=== PATIENT | female | born 1980 | race African-American/Black ===

== ENCOUNTER 2020-07-27 11:57 | Inpatient (IN) | payer SELFPAY ==
[2020-07-27] MEDS ORDERED: niCARdipine 25 MG in Sodium Chloride 0.9% 250 ML 240 ML IVPB SCH (14:00)
[2020-07-27 14:41] VITALS: BMI 27.8
[2020-07-27] MEDS ORDERED: hydrALAZINE 20 MG/ML VIAL SLOW IVP PRN (15:19)
[2020-07-27] MEDS: Multivitamins, Adult 10 ML, Folic Acid 1 MG, Thiamine HCl 100 MG in Dextrose 5 %-0.45 %... IV SCH (15:42)
[2020-07-27 15:43] LABS: #Lymphocytes 1.5 thou/uL (1.20-3.40); #Monocytes 0.6 thou/uL (0.11-0.59); #Neutrophils 7.3 thou/uL (1.40-6.50); %Basophils 0.2 % (0.0-1.0); %Eosinophils 0.2 % (0.0-10.0); %Lymphocytes 15.7 % (21.0-51.0); %Monocytes 6.2 % (0.0-10.0); %Neutrophils 77.7 % (42.0-75.0); Hemoglobin 6.3 g/dL (12.0-16.0); Mean Corpuscular HGB CONC 27.8 g/dL (32.0-36.0); Mean Corpuscular Volume 57.4 fL (78.0-98.0); Mean Platelet Volume 5.3 fL (7.4-10.4); Platelet Count 908 thou/uL (130-400); RBC Distribution Width 24.7 % (11.5-14.5); Red Blood Cell (RBC) Count 3.96 mill/uL (4.20-5.40); White Blood Cell (WBC) Count 9.4 thou/uL (4.8-10.8)
[2020-07-27 15:47] LABS: Reticulocyte Count 2.1 % (0.5-1.5)
[2020-07-27 16:11] LABS: Anisocytosis MODERATE=16-30 cells (100X) (0-5/hpf); Hypochromia MODERATE=16-30 cells (100X) (0-5/hpf); Large Platelets SLIGHT; MDiff Complete? YES; Microcytosis MODERATE=15-30 cells (100X) (0-5/hpf); Ovalocytes SLIGHT = 2-5 cells (100X) (0-1/hpf); Platelet Morphology Comment Appears Increased; Polychromasia MODERATE = 3-4 cells (100X) (0-2/hpf); Reflex for Review?? YES; Target Cells SLIGHT = 2-5 cells (100X) (0-1/hpf); Tear Drops SLIGHT = 2-5 cells (100X) (0-1/hpf)
[2020-07-27 16:20] LABS: Iron 10 ug/dL (50-170); Iron Binding Capacity, Total 574 mcg/dL (265-497)
[2020-07-27 17:54] LABS: SARS-CoV-2 NAA Rapid Test Not Detected (NotDetected)
[2020-07-27] MEDS: Sodium Chloride 0.9% 1,000 ML IV SCH (18:43)
[2020-07-27] MEDS: Atorvastatin Calcium 40 MG TAB PO SCH (20:36)
[2020-07-27] MEDS ORDERED: Melatonin 3 MG TAB PO SCH (22:00)
[2020-07-27 23:56] LABS: #Eosinphils 0.1 thou/uL (0.0-0.7); #Lymphocytes 3.4 thou/uL (1.20-3.40); #Monocytes 1.5 thou/uL (0.11-0.59); %Basophils 0.3 % (0.0-1.0); %Eosinophils 0.6 % (0.0-10.0); %Lymphocytes 31.2 % (21.0-51.0); %Monocytes 13.4 % (0.0-10.0); %Neutrophils 54.5 % (42.0-75.0); Hemoglobin 5.5 g/dL (12.0-16.0); Mean Corpuscular HGB CONC 28.1 g/dL (32.0-36.0); Mean Corpuscular Hemoglobin 15.9 pg (27.0-31.0); Mean Corpuscular Volume 56.5 fL (78.0-98.0); Platelet Count 865 thou/uL (130-400); RBC Distribution Width 24.4 % (11.5-14.5); Red Blood Cell (RBC) Count 3.46 mill/uL (4.20-5.40)
[2020-07-28] MEDS ORDERED: Iron, Sodium Ferric Gluconate 250 MG in Sodium Chloride 0.9% 100 ML IVPB SCH (00:15)
[2020-07-28] MEDS ORDERED: Famotidine/PF 20 mg/2ml Vial SLOW IVP SCH (03:45)
[2020-07-28] MEDS ORDERED: diphenhydrAMINE 50 MG/ML VIAL IVP SCH (03:45)
[2020-07-28 05:31] LABS: Cardiac Risk 3.4 (Less than 4.5)
[2020-07-28] MEDS: Sodium Chloride 0.9% 1,000 ML IV SCH ×2 (05:36→15:42)
[2020-07-28 06:09] LABS: Hemoglobin 7.6 g/dL (12.0-16.0); Platelet Count 927 thou/uL (130-400)
[2020-07-28] MEDS: Enoxaparin Sodium 40 MG/0.4 ML SYRINGE SC SCH (11:35)
[2020-07-28 14:54] LABS: INR-International Normal Ratio 1.1; PTT 33.9 sec (22.9-36.1)
[2020-07-28] MEDS ORDERED: FLU VACC QS2020-21(6MOS UP)/PF 60 MCG/0.5 ML SYRINGE IM ONE (15:15)
[2020-07-28] MEDS: Multivitamins, Adult 10 ML, Folic Acid 1 MG, Thiamine HCl 100 MG in Dextrose 5 %-0.45 %... IV SCH (15:41)
[2020-07-28 20:46] LABS: #Basophils 0.3 thou/uL (0.0-0.2); #Eosinphils 0.1 thou/uL (0.0-0.7); #Lymphocytes 3.8 thou/uL (1.20-3.40); #Monocytes 1.4 thou/uL (0.11-0.59); #Neutrophils 7.9 thou/uL (1.40-6.50); %Basophils 2.5 % (0.0-1.0); %Eosinophils 0.6 % (0.0-10.0); %Lymphocytes 27.9 % (21.0-51.0); %Monocytes 10.2 % (0.0-10.0); %Neutrophils 58.7 % (42.0-75.0); Hemoglobin 6.5 g/dL (12.0-16.0); Mean Corpuscular HGB CONC 29.4 g/dL (32.0-36.0); Mean Corpuscular Hemoglobin 17.4 pg (27.0-31.0); Mean Corpuscular Volume 59.1 fL (78.0-98.0); Mean Platelet Volume 5.1 fL (7.4-10.4); Platelet Count 764 thou/uL (130-400); RBC Distribution Width 26.6 % (11.5-14.5); Red Blood Cell (RBC) Count 3.71 mill/uL (4.20-5.40); White Blood Cell (WBC) Count 13.4 thou/uL (4.8-10.8)
[2020-07-28 21:03] LABS: ALT (SGPT) 12 U/L (8-55); AST (SGOT) 15 U/L (5-34); Albumin 4.1 g/dL (3.5-5.0); Alkaline Phosphatase 57 U/L (40-110); Anion Gap 13 mmol/L (10-20); BUN (Urea Nitrogen) 14 mg/dL (7.0-18.7); Bilirubin, Total 0.6 mg/dL (0.2-1.2); Calc. Creatinine Clearance 70 mL/min (70-130); Calcium 9.5 mg/dL (7.8-10.44); Carbon Dioxide 25 mmol/L (22-29); Chloride 102 mmol/L (98-107); Globulin 3.2 g/dL (2.4-3.5); Glucose 107 mg/dL (70-105); Potassium 3.1 mmol/L (3.5-5.1); Protein, Total 7.3 g/dL (6.0-8.3); Sodium 137 mmol/L (136-145)
[2020-07-28] MEDS: Atorvastatin Calcium 40 MG TAB PO SCH (21:42)
[2020-07-29] MEDS ORDERED: Electrolyte Replacement Protocol 1 EACH FS PRN (03:30)
[2020-07-29] MEDS ORDERED: Potassium Chloride 20 MEQ TAB PO SCH (03:45)
[2020-07-29 04:45] LABS: Hemoglobin 6.5 g/dL (12.0-16.0); Mean Corpuscular HGB CONC 30.6 g/dL (32.0-36.0); Mean Corpuscular Hemoglobin 18.2 pg (27.0-31.0); Mean Corpuscular Volume 59.3 fL (78.0-98.0); RBC Distribution Width 26.7 % (11.5-14.5); Red Blood Cell (RBC) Count 3.59 mill/uL (4.20-5.40)
[2020-07-29 04:51] LABS: Lactic Acid 1.3 mmol/L (0.5-2.2)
[2020-07-29 04:53] LABS: Anion Gap 17 mmol/L (10-20); BUN (Urea Nitrogen) 13 mg/dL (7.0-18.7); Calc. Creatinine Clearance 102 mL/min (70-130); Calcium 9.1 mg/dL (7.8-10.44); Carbon Dioxide 22 mmol/L (22-29); Chloride 105 mmol/L (98-107); Glucose 96 mg/dL (70-105); Potassium 3.5 mmol/L (3.5-5.1); Sodium 140 mmol/L (136-145)
[2020-07-29 05:02] LABS: Hypochromia SLIGHT = 6-15 cells (100X) (0-5/hpf); Lymphocytes 36 % (21-51); MDiff Complete? YES; Mean Platelet Volume 5.3 fL (7.4-10.4); Monocytes 13 % (0-10); Neutrophil 51 % (42-75); Platelet Count 699 thou/uL (130-400); Platelet Morphology Comment Appears Increased; Polychromasia SLIGHT = 2-3 cells (100X) (0-2/hpf)
[2020-07-29] MEDS ORDERED: Magnesium 2 GM/50 ML 2 GM in Premix Bag 1 BAG IVPB SCH (06:30)
[2020-07-29] MEDS ORDERED: Iron Sucrose Complex 200 MG in Sodium Chloride 0.9% 100 ML IVPB SCH (09:00)
[2020-07-29] MEDS: Iron, Sodium Ferric Gluconate 250 MG in Sodium Chloride 0.9% 100 ML IVPB SCH (09:41)
[2020-07-29] MEDS: Enoxaparin Sodium 40 MG/0.4 ML SYRINGE SC SCH (09:41)
[2020-07-29] MEDS ORDERED: Aspirin 325 MG TAB PO SCH (09:45)
[2020-07-29 15:42] LABS: Protein C Activity 87 % (78-152)
[2020-07-29 16:07] LABS: Factor VIII Test 515.7 % ACTIVE (56-157)
[2020-07-29] MEDS: Atorvastatin Calcium 40 MG TAB PO SCH (21:52)
[2020-07-30 06:45] LABS: Hemoglobin 6.4 g/dL (12.0-16.0); Mean Corpuscular HGB CONC 30.3 g/dL (32.0-36.0); Mean Corpuscular Hemoglobin 18.2 pg (27.0-31.0); Mean Corpuscular Volume 60.1 fL (78.0-98.0); Mean Platelet Volume 5.2 fL (7.4-10.4); Platelet Count 593 thou/uL (130-400); RBC Distribution Width 27.4 % (11.5-14.5); Red Blood Cell (RBC) Count 3.53 mill/uL (4.20-5.40); White Blood Cell (WBC) Count 11.6 thou/uL (4.8-10.8)
[2020-07-30] MEDS: Enoxaparin Sodium 40 MG/0.4 ML SYRINGE SC SCH (08:30)
[2020-07-30] MEDS: Aspirin 325 MG TAB PO SCH (08:30)
[2020-07-30 08:38] LABS: Anisocytosis MARKED = >30 cells (100X) (0-5/hpf); Band 1 % (5-11); Eosinophils 1 % (0-10); Hypochromia MODERATE=16-30 cells (100X) (0-5/hpf); Lymphocytes 30 % (21-51); MDiff Complete? YES; Microcytosis MODERATE=15-30 cells (100X) (0-5/hpf); Monocytes 8 % (0-10); Neutrophil 57 % (42-75); Platelet Morphology Comment Appears Increased; Polychromasia MARKED = >4 cells (100X) (0-2/hpf); Reactive Lymphocytes 3 % (0-10); Spherocytes SLIGHT = 1-5 cells (100X) (None Seen); Tear Drops SLIGHT = 2-5 cells (100X) (0-1/hpf)
[2020-07-30] MEDS: Iron, Sodium Ferric Gluconate 250 MG in Sodium Chloride 0.9% 100 ML IVPB SCH (11:20)
[2020-07-30] MEDS ORDERED: Iron, Sodium Ferric Gluconate 250 MG in Sodium Chloride 0.9% 100 ML IVPB SCH (11:30)
[2020-07-30] MEDS ORDERED: Amlodipine 5 MG TAB PO SCH (12:15)
[2020-07-30] MEDS ORDERED: diphenhydrAMINE 50 MG/ML VIAL IVP SCH (14:45)
[2020-07-30] MEDS: Atorvastatin Calcium 40 MG TAB PO SCH (20:09)
[2020-07-31 05:26] LABS: Band 1 % (5-11); Eosinophils 1 % (0-10); Hemoglobin 7.2 g/dL (12.0-16.0); Hypochromia SLIGHT = 6-15 cells (100X) (0-5/hpf); Lymphocytes 35 % (21-51); MDiff Complete? YES; Mean Corpuscular HGB CONC 29.9 g/dL (32.0-36.0); Mean Corpuscular Hemoglobin 18.2 pg (27.0-31.0); Mean Corpuscular Volume 60.9 fL (78.0-98.0); Mean Platelet Volume 4.9 fL (7.4-10.4); Microcytosis SLIGHT = 6-15 cells (100X) (0-5/hpf); Monocytes 7 % (0-10); Neutrophil 56 % (42-75); Platelet Count 496 thou/uL (130-400); Platelet Morphology Comment Appears Increased; Polychromasia SLIGHT = 2-3 cells (100X) (0-2/hpf); Red Blood Cell (RBC) Count 3.94 mill/uL (4.20-5.40); White Blood Cell (WBC) Count 10.2 thou/uL (4.8-10.8)
[2020-07-31] MEDS ORDERED: Amlodipine 10 MG TAB PO SCH (09:00)
[2020-07-31] MEDS ORDERED: Amlodipine 5 MG TAB PO SCH (09:00)
[2020-07-31] MEDS: Aspirin 325 MG TAB PO SCH (10:50)
[2020-07-31] MEDS: Enoxaparin Sodium 40 MG/0.4 ML SYRINGE SC SCH (10:51)
[2020-07-31] MEDS: Acetaminophen 325 MG TAB PO PRN (19:36)
[2020-07-31] MEDS: Atorvastatin Calcium 40 MG TAB PO SCH (19:38)
[2020-07-31] MEDS: Metoprolol Tartrate 25 MG TAB PO SCH (19:38)
[2020-08-01] MEDS ORDERED: Potassium Chloride 20 MEQ TAB PO SCH (08:45)
[2020-08-01] MEDS ORDERED: Amlodipine 10 MG TAB PO SCH (09:00)
[2020-08-01] MEDS: Metoprolol Tartrate 25 MG TAB PO SCH (09:31)
[2020-08-01] MEDS: Aspirin 325 MG TAB PO SCH (09:31)
[2020-08-01] MEDS: Enoxaparin Sodium 40 MG/0.4 ML SYRINGE SC SCH (09:34)
[2020-08-01] MEDS: Acetaminophen 325 MG TAB PO PRN (09:38)
[2020-08-01 11:15] LABS: ANA Symphony (Qualitative) Negative (Negative); ANA Symphony (Quantitative) 0.2 Ratio (< 0.7 Negative); dsDNA IgG Antibody 5.3 IU/mL (<10 Negative)
[2020-08-01] MEDS ORDERED: cloNIDine 0.1 MG TAB PO PRN (11:51)
[2020-08-01] MEDS ORDERED: Metoprolol Tartrate 25 MG TAB PO SCH (13:45)
[2020-08-01 15:00] LABS: Cardiolipin IgG Ab 0.6 GPL-U/mL (<10 Negative); Cardiolipin IgM Ab 4.6 MPL-U/mL (<10 Negative); EliA APS New Method **** NEW METHOD ****
[2020-08-01 15:52] VITALS: BP 156/99; TEMP 97.9
[2020-08-01] MEDS ORDERED: Metoprolol Tartrate 50 MG TAB PO SCH (21:00)
[2020-08-02] MEDS ORDERED: Potassium Chloride 20 MEQ TAB PO SCH (08:00)
[2020-08-04 12:10] LABS: HEX PHOS LA Tube 1 39.6 SEC; Hexagonal Phospholipid Neut 1.5 SEC (0-8.0)
[2020-08-20 19:09] LABS: Activated Protein C Resistance 2.5 ratio (.)
== END 2020-08-01 16:35 | disposition home or self-care (01) | DRG 65 ==
LOC: CCU 11:57 → 2SE 18:38
PROVIDERS: ADMIT Internal Medicine; ATTEND Internal Medicine
DX: I63.312 Cerebral infarction due to thrombosis of left middle cerebral artery (principal); H34.12 Central retinal artery occlusion, left eye; N17.9 Acute kidney failure, unspecified; R29.701 NIHSS score 1; Z20.822 Contact with and (suspected) exposure to COVID-19; D69.6 Thrombocytopenia, unspecified; E87.6 Hypokalemia; I10 Essential (primary) hypertension; I16.0 Hypertensive urgency; F10.10 Alcohol abuse, uncomplicated; D64.9 Anemia, unspecified; R47.1 Dysarthria and anarthria; D50.0 Iron deficiency anemia secondary to blood loss (chronic); H54.40 Blindness, one eye, unspecified eye; I08.1 Rheumatic disorders of both mitral and tricuspid valves; R47.81 Slurred speech; I63.332 Cerebral infarction due to thrombosis of left posterior cerebral artery; Z28.21 Immunization not carried out because of patient refusal; Z90.710 Acquired absence of both cervix and uterus; Z82.3 Family history of stroke; Z91.14 Patient's other noncompliance with medication regimen; Z79.899 Other long term (current) drug therapy
CPT/HCPCS: 36415; 36430; 70551; 80048; 80053; 80061; 82607; 82728; 82746; 83090; 83540; 83550; 83605; 83735; 85025; 85046; 85060; 85240; 85300; 85303; 85305; 85307; 85379; 85598; 85610; 85652; 85730; 86038; 86140; 86147; 86225; 86850; 86900; 86901; 93306; 93880; J1200; J1650; J2916; J3411; J3475; J3490; J7042; J7050; P9016; S0028; U0002